=== PATIENT | female | born 1965 | race African-American/Black ===

== ENCOUNTER → 2016-07-01 | Day surgery (SDC) | payer OTHER ==
[~2016-07-01] MED LIST: AMLODIPINE BESY10 MG PO
--- NOTE | ~2016-07-01 | OR ---
Unit #: [id number] #: [id number] Patient: RASHARD MALHOTRA [id number] [address] [address] [id number] MR#: [id number] NAME: RASHARD MALHOTRA ROOM: Date of Procedure: 07/01/2016 Admission Date: 07/01/2016 Surgeon: Dalton Oliveira M.D. : 1965 Attending Physician: Dalton Oliveira M.D. Primary Care Physician: Colin Rinaldi Aprn OPERATIVE REPORT JOB NOTE: CC: PCP PROCEDURE PERFORMED Colonoscopy with snare polypectomy. INDICATIONS FOR PROCEDURE The patient with history of diverticulitis, abdominal pain, undergoing evaluation of colonoscopy. MEDICATIONS Monitored anesthesia. POSTOPERATIVE FINDINGS 1. Colonoscopy completed to cecum. No significant diverticulosis noted. 2. Polyp 8 to 10 mm, sigmoid colon, snared and sent for histopathology. 3. Small internal hemorrhoids. PLAN Follow up on the pathology report. Repeat colonoscopy in 5 years. DESCRIPTION OF PROCEDURE The patient was explained of the procedure, risks, and benefits along with risks and benefits of anesthesia. She was brought to the endoscopy room. Propofol anesthesia was given. Rectal exam was done, which was normal. Colonoscope was lubricated, passed up the rectum, advanced under direct vision all the way to the cecum. Cecum was identified by ileocecal valve and appendiceal orifice. I then started to pull the scope out carefully looking. Polyp seen in sigmoid colon was snared and sent for histopathology. Rest of the mucosa was normal and healthy. No significant diverticulosis noted. I retroflexed in the rectum, small hemorrhoids seen. Gently the scope was pulled out. She tolerated the procedure well. No major complications were seen. Dictated by... Cale Stark/stan TD: 07/01/2016 15:43 JOB #: [id number] Unit #: [id number] #: [id number] Patient: RASHARD MALHOTRA OPERATIVE REPORT Page 1 of 1 X Dalton Oliveira MD X PROCEDURE OPERATIVE NOTE
== END | disposition home or self-care (01) ==
LOC: COPS 12:23
DX: D12.5 Benign neoplasm of sigmoid colon (principal); K64.8 Other hemorrhoids; H40.9 Unspecified glaucoma; I10 Essential (primary) hypertension; Z98.51 Tubal ligation status; Z90.49 Acquired absence of other specified parts of digestive tract; Z98.818 Other dental procedure status; Z87.19 Personal history of other diseases of the digestive system; Z79.899 Other long term (current) drug therapy
CPT/HCPCS: 84703; 88305